=== PATIENT | male | born 1950 | race Caucasian/White ===

== ENCOUNTER 2019-12-21 14:54 | Emergency (ER) | payer BC, MEDICARE, OTHER ==
[2019-12-21] MEDS ORDERED: Sodium Chloride 0.9% 2.5 ML Syringe FLUSH PRN (14:57)
[2019-12-21] MEDS ORDERED: Sodium Chloride 0.9% 10 ML Syringe FLUSH PRN (14:57)
[2019-12-21] MEDS ORDERED: Albuterol/Ipratropium 3.0-0.5 MG/3 ML Neb Soln ONE (14:57)
[2019-12-21] MEDS ORDERED: Magnesium Sulfate/Water 2 GM in Premix Bag 1 BAG IV ONE (14:59)
[2019-12-21] MEDS ORDERED: Albuterol/Ipratropium 3.0-0.5 MG/3 ML Neb Soln NEB ONE (14:59)
[2019-12-21] MEDS ORDERED: methylPREDNISolone Sodium Succinate 125 MG/2 ML SDV IVPUSH ONE (15:00)
--- NOTE | 2019-12-21 15:06 | EDM.PDOC ---
ED HPI GENERAL MEDICAL PROBLEM - General Chief Complaint: Respiratory Problem Stated Complaint: W/NURSE Time Seen by Provider: 12/21/19 15:02 Source of Information: Reports: Patient History Limitations: Reports: Respiratory Distress - History of Present Illness INITIAL COMMENTS - FREE TEXT/NARRATIVE: Patient presents with SOB worsening over last few days. History limited 2/2 res piratory distress. "collapsed" in waiting room. Denies chest pain. 1539: patient provides additional history know that his breathing is improved. He has h/o COPD and is here for work, lives about 280 [address] away. He was at an outside hospital last week and was treated for COPD, got steroids, took them and was initially feeling better but has been deteriorating over last couple of days. This morning very SOB w/ cough despite using home NEB machine. No fevers, no chest pain. - Related Data Allergies Allergy/AdvReac Type Severity Reaction Status Date / Time No Known Allergies Allergy Verified 12/21/19 14:59 Home Meds: Home Meds . [Unable to Verify Home Med List] 11/13/13 [History] ED ROS GENERAL - Review of Systems Review Of Systems: Comprehensive ROS is negative, except as noted in HPI. ED EXAM, GENERAL - Physical Exam Exam: See Below Exam Limited By: No Limitations General Appearance: Alert, WD/WN, No Apparent Distress Throat/Mouth: Normal Voice, No Airway Compromise Head: Atraumatic, Normocephalic Neck: Normal Inspection Respiratory/Chest: Respiratory Distress, Decreased Breath Sounds, Wheezing Cardiovascular: Normal Peripheral Pulses, Regular Rate, Rhythm, No Edema Extremities: Normal Inspection Neurological: Alert Psychiatric: Normal Affect, Normal Mood Skin Exam: Warm, Dry, Intact, Normal Color, No Rash EKG INTERPRETATION EKG Date: 12/21/19 Time: 15:00 Rhythm: NSR Rate (Beats/Min): 88 Viola: Normal P-Wave: Present QRS: Normal ST-T: Normal QT: Normal Course - Vital Signs Last Recorded V/S: Last Vital Signs Temp 96.1 F L 12/21/19 14:55 Pulse 92 12/21/19 15:30 Resp 20 12/21/19 15:30 BP 142/76 H 12/21/19 15:30 Pulse Ox 95 12/21/19 15:30 - Orders/Labs/Meds Orders: Active Orders 24 hr Category Date Time Status Cardiac Monitoring [RC] . DIRECTED Care 12/21/19 14:57 Active EKG Documentation Completion [RC] STAT Care 12/21/19 14:57 Active Pulse Oximetry [RC] ASDIRECTED Care 12/21/19 14:57 Active RT Aerosol Therapy [RC] ASDIRECTED Care 12/21/19 15:00 Active CORONAVIRUS COVID-19 RAPID [MOLEC] Stat Lab 12/21/19 15:50 Received Magnesium Sulfate/Water [Magnesium Sulfate in Water Med 12/21/19 14:59 Active Premix] 2 gm Premix Bag 1 bag IV ONETIME Sodium Chloride 0.9% [Saline Flush] Med 12/21/19 14:57 Active 10 ml FLUSH ASDIRECTED PRN Sodium Chloride 0.9% [Saline Flush] Med 12/21/19 14:57 Active 2.5 ml FLUSH ASDIRECTED PRN Saline Lock Insert [OM.PC] Stat Oth 12/21/19 14:57 Ordered Medication Orders Magnesium Sulfate 2 gm/ Premix 50 mls @ 50 mls/hr IV ONETIME ONE Stop: 12/21/19 15:58 Last Admin: 12/21/19 15:13 Dose: 50 mls/hr Documented by: VIALMEL Sodium Chloride (Saline Flush) 10 ml FLUSH ASDIRECTED PRN PRN Reason: Keep Vein Open Last Admin: 12/21/19 15:13 Dose: 10 ml Documented by: VIALMEL Sodium Chloride (Saline Flush) 2.5 ml FLUSH ASDIRECTED PRN PRN Reason: Keep Vein Open Last Admin: 12/21/19 15:13 Dose: 2.5 ml Documented by: EVELIA Labs: Laboratory Tests 12/21/19 12/21/19 12/21/19 Range/Units 15:04 15:04 15:04 WBC 10.47 (4.0-11.0) K/uL RBC 5.35 (4.50-5.90) M/uL Hgb 15.1 (13.0-17.0) g/dL Hct 46.3 (38.0-50.0) % MCV 86.5 (80.0-98.0) fL MCH 28.2 (27.0-32.0) pg MCHC 32.6 (31.0-37.0) g/dL RDW Std Deviation 45.4 (28.0-62.0) fl RDW Coeff of Bandar 14 (11.0-15.0) % Plt Count 150 (150-400) K/uL MPV 10.00 (7.40-12.00) fL Neut % (Auto) 84.6 H (48.0-80.0) % Lymph % (Auto) 5.4 L (16.0-40.0) % Nicol[place] % (Auto) 5.3 (0.0-15.0) % Eos % (Auto) 4.6 (0.0-7.0) % Baso % (Auto) 0.1 (0.0-1.5) % Neut # (Auto) 8.9 H (1.4-5.7) K/uL Lymph # (Auto) 0.6 (0.6-2.4) K/uL [place] # (Auto) 0.6 (0.0-0.8) K/uL Eos # (Auto) 0.5 (0.0-0.7) K/uL Baso # (Auto) 0.0 (0.0-0.1) K/uL Nucleated RBC % 0.0 /100WBC Nucleated RBCs # 0 K/uL Sodium 138 (136-148) mmol/L Potassium 3.7 (3.5-5.1) mmol/L Chloride 103 (98-107) mmol/L Carbon Dioxide 27.0 (21.0-32.0) mmol/L BUN 11 (7.0-18.0) mg/dL Creatinine 0.9 (0.8-1.3) mg/dL Est Cr Clr Drug Dosing 85.02 mL/min Estimated GFR (MDRD) > 60.0 ml/min Glucose 194 H (74-106) mg/dL Calcium 8.2 L (8.5-10.1) mg/dL Magnesium 1.3 L (1.8-2.4) mg/dL Total Bilirubin 0.9 (0.2-1.0) mg/dL AST 15 (15-37) IU/L ALT 30 (14-63) IU/L Alkaline Phosphatase 95 (46-116) U/L Troponin I 0.126 H* (0.000-0.056) ng/mL B-Natriuretic Peptide 340 H (<100) PG/ML Total Protein 6.5 (6.4-8.2) g/dL Albumin 3.5 (3.4-5.0) g/dL Globulin 3.0 (2.6-4.0) g/dL Albumin/Globulin Ratio 1.2 (0.9-1.6) Meds: Medications Generic Name Dose Route Start Last Admin Trade Name Freq PRN Reason Stop Dose Admin Magnesium Sulfate 2 gm/ Premix 50 mls @ 50 mls/hr 12/21/19 14:59 12/21/19 15:13 IV 12/21/19 15:58 50 mls/hr ONETIME ONE Administration Sodium Chloride 10 ml 12/21/19 14:57 12/21/19 15:13 Saline Flush FLUSH 10 ml ASDIRECTED PRN Administration Keep Vein Open Sodium Chloride 2.5 ml 12/21/19 14:57 12/21/19 15:13 Saline Flush FLUSH 2.5 ml ASDIRECTED PRN Administration Keep Vein Open Discontinued Medications Generic Name Dose Route Start Last Admin Trade Name Markq PRN Reason Stop Dose Admin Albuterol/Ipratropium Confirm 12/21/19 14:57 12/21/19 15:02 Duoneb 3.0-0.5 Mg/3 Ml Administered 12/21/19 14:58 3 ml Dose Administration 3 ml .ROUTE .STK-MED ONE Albuterol/Ipratropium 3 ml 12/21/19 14:59 12/21/19 15:10 Duoneb 3.0-0.5 Mg/3 Ml NEB 12/21/19 15:00 3 ml ONETIME ONE Administration Aspirin 324 mg 12/21/19 15:48 Aspirin PO 12/21/19 15:49 ONETIME ONE Enoxaparin Sodium 100 mg 12/21/19 15:54 Lovenox SUBCUT 12/21/19 15:55 ONETIME ONE Methylprednisolone Sodium Succinate 125 mg 12/21/19 15:00 12/21/19 15:13 Solu-Medrol IVPUSH 12/21/19 15:01 125 mg ONETIME ONE Administration - Re-Assessments/Exams Free Text/Narrative Re-Assessment/Exam: 12/21/19 15:47 Cardiac enzymes elevated; spoke with patient who states he had trouble with his heart "years ago" but isn't sure exactly whta problems he had. He denies having any coronary stents and has not had a stress test in years and no h/o cath. He is agreeable for transfer to [place]. 12/21/19 15:56 Will transfer to [place]; Dr. Espinal agrees for ED-ED transfer Departure - Departure Time of Disposition: 15:57 Disposition: DC/Tfer to [facility] Condition: Fair Clinical Impression: NSTEMI (non-ST elevated myocardial infarction), COPD exacerbation - Discharge Information Referrals: PCP,None [Primary Care Provider] - Forms: ED Department Discharge Sepsis Event Note (ED) - Evaluation Sepsis Screening Result: No Definite Risk - Focused Exam Vital Signs: Vital Signs Temp Pulse Resp BP Pulse Ox Pulse Ox 12/21/19 15:30 92 20 142/76 H 95 12/21/19 15:17 84 19 133/71 94 L 12/21/19 15:02 95 12/21/19 14:55 96.1 F L 92 22 H 133/71 92 L - My Orders Last 24 Hours: My Active Orders 12/21/19 14:57 Cardiac Monitoring [RC] . DIRECTED EKG Documentation Completion [RC] STAT Pulse Oximetry [RC] ASDIRECTED Sodium Chloride 0.9% [Saline Flush] 10 ml FLUSH ASDIRECTED PRN Sodium Chloride 0.9% [Saline Flush] 2.5 ml FLUSH ASDIRECTED PRN Saline Lock Insert [OM.PC] Stat 12/21/19 14:59 Magnesium Sulfate/Water [Magnesium Sulfate in Water Premix] 2 gm Premix Bag 1 bag IV ONETIME 12/21/19 15:00 RT Aerosol Therapy [RC] ASDIRECTED 12/21/19 15:50 CORONAVIRUS COVID-19 RAPID [MOLEC] Stat - Assessment/Plan Last 24 Hours: My Active Orders 12/21/19 14:57 Cardiac Monitoring [RC] . DIRECTED EKG Documentation Completion [RC] STAT Pulse Oximetry [RC] ASDIRECTED Sodium Chloride 0.9% [Saline Flush] 10 ml FLUSH ASDIRECTED PRN Sodium Chloride 0.9% [Saline Flush] 2.5 ml FLUSH ASDIRECTED PRN Saline Lock Insert [OM.PC] Stat 12/21/19 14:59 Magnesium Sulfate/Water [Magnesium Sulfate in Water Premix] 2 gm Premix Bag 1 bag IV ONETIME 12/21/19 15:00 RT Aerosol Therapy [RC] ASDIRECTED 12/21/19 15:50 CORONAVIRUS COVID-19 RAPID [MOLEC] Stat
--- NOTE | 2019-12-21 15:34 | CR ---
Chest: Portable view of the chest was obtained. Comparison: No prior chest x-ray. Blunting of the lateral costophrenic angle is seen. I suspect that this is chronic but would need old films to confirm. Slight scarring or atelectasis is also noted within the left base. Lungs otherwise are clear. Heart size and mediastinum are normal. Bony structures show nothing acute. Impression: 1. Findings within the left base as noted above. 2. Nothing acute is suspected. Diagnostic code #2 This report was dictated in MDT
[2019-12-21 15:43] LABS: BLOOD UREA NITROGEN,BUN 11 mg/dL (7.0-18.0); CHLORIDE,CL 103 mmol/L (98-107); GLUCOSE RANDOM 194 mg/dL (74-106); POTASSIUM,K 3.7 mmol/L (3.5-5.1); SODIUM,NA 138 mmol/L (136-148)
[2019-12-21] MEDS ORDERED: Aspirin 81 MG Tab.Chew PO ONE (15:48)
[2019-12-21] MEDS ORDERED: Enoxaparin 100 MG/1 ML Syringe SUBCUT ONE (15:54)
== END 2019-12-21 18:11 | disposition left against medical advice (07) ==
LOC: MW.ED 14:54
DX: I21.4 Non-ST elevation (NSTEMI) myocardial infarction (principal); J44.1 Chronic obstructive pulmonary disease with (acute) exacerbation
CPT/HCPCS: 36415; 71045; 80053; 83735; 83880; 84484; 85025; 93005; 94640; 96365; 96372; 96375; 99285; A9270; J1650; J2930; J3475; U0002; J7620-GY